=== PATIENT | female | born 1930 | race Caucasian/White ===

== ENCOUNTER 2016-03-17 07:20 | Inpatient (IN) | payer MEDICARE, OTHER ==
[~2016-03-17] VITALS: Ht 172.7 cm; Wt 74.3 kg
[2016-03-17] MEDS ORDERED: OPTIRAY 350 100 ML VIAL HMH IV ONE (07:21)
[2016-03-17] MEDS ORDERED: SODIUM CHLORIDE 0.9% 100 ML IV ONE (10:09)
[2016-03-17] MEDS ORDERED: CEFTRIAXONE 1 GM VIAL ONE (10:09)
[2016-03-17] MEDS ORDERED: DILAUDID 1 MG/ML AMP IV PRN (13:45)
[2016-03-17] MEDS ORDERED: ONDANSETRON 4 MG VIAL IV PUSH PRN (13:45)
[2016-03-17] MEDS ORDERED: ACETAMINOPHEN 325 MG TAB PO PRN (13:45)
[2016-03-17] MEDS ORDERED: ALU/MAG/SIM 30 ML UDC PO PRN (13:45)
[2016-03-17] MEDS ORDERED: SALINE FLUSH 10 ML FLUSH PRN (13:45)
[2016-03-17] MEDS ORDERED: SODIUM CHLORIDE 0.9% 1,000 ML IV SCH (13:45)
[2016-03-17] MEDS ORDERED: LACTULOSE SOLN 20GM/30ML UDC PO PRN (13:45)
[2016-03-17] MEDS ORDERED: PROMETHAZINE 25 MG/ML VIAL IV PRN (13:45)
[2016-03-17] MEDS ORDERED: DEXTROSE 50% SYRINGE 50 ML IV PRN (14:55)
[2016-03-17] MEDS ORDERED: GLUCAGON 1 MG VIAL IM PRN (14:55)
[2016-03-17] MEDS ORDERED: CEFTRIAXONE 1 GM in SODIUM CHLORIDE 0.9% 50 ML IV ONE (16:10)
[2016-03-17] MEDS ORDERED: *PINK BRACELET XX ONE (16:55)
[2016-03-17 18:33] VITALS: BP_SYST 140; BP_SYST 142; RESP 18; TEMP 97.5
[2016-03-17 18:34] VITALS: Ht 172.7 cm; Wt 74.3 kg
[2016-03-17 19:33] VITALS: BP_SYST 140
[2016-03-17 19:34] VITALS: RESP 20; TEMP 97.6
[2016-03-17] MEDS: *HOME MEDS KEPT IN PHARMACY XX SCH (20:00)
[2016-03-17] MEDS: SALINE FLUSH 10 ML FLUSH SCH (20:00)
[2016-03-17] MEDS: ALPRAZOLAM 0.25 MG TAB PO PRN (20:11)
[2016-03-17] MEDS: PANTOPRAZOLE 40 MG TAB PO SCH (21:30)
[2016-03-17] MEDS: Atorvastatin 20 MG TAB PO SCH (21:30)
[2016-03-17] MEDS: Carvedilol 3.125 MG TAB PO SCH (21:30)
[2016-03-17] MEDS: METFORMIN 500 MG TAB PO SCH (21:30)
[2016-03-17] MEDS: GABAPENTIN 100 MG CAP PO SCH (21:30)
[2016-03-17] MEDS: BUSPIRONE HCL 15 MG TAB PO SCH (21:30)
[2016-03-17 23:00] VITALS: BP_SYST 139
[2016-03-17 23:01] VITALS: RESP 20; TEMP 97.6
[2016-03-18 03:17] VITALS: BP_SYST 122; RESP 20; TEMP 98.3
[2016-03-18] MEDS: SODIUM CHLORIDE 0.9% FLUSH BAG 500 ML IV SCH (05:03)
[2016-03-18] MEDS: LEVOTHYROXINE 0.075 MG TAB PO SCH (06:30)
[2016-03-18 07:28] VITALS: BP_SYST 136; RESP 20; TEMP 98.1
[2016-03-18] MEDS: SALINE FLUSH 10 ML FLUSH SCH ×2 (08:00→22:07)
[2016-03-18] MEDS: *HOME MEDS KEPT IN PHARMACY XX SCH ×2 (08:00→20:00)
[2016-03-18] MEDS: ALPRAZOLAM 0.25 MG TAB PO PRN ×2 (09:24→22:05)
[2016-03-18] MEDS: CEFTRIAXONE 2 GM in SODIUM CHLORIDE 0.9% 50 ML IV SCH (09:24)
[2016-03-18] MEDS: ASPIRIN EC 81 MG TAB PO SCH (09:57)
[2016-03-18] MEDS: SPIRONOLACTONE 25 MG TAB PO SCH (09:57)
[2016-03-18] MEDS: PANTOPRAZOLE 40 MG TAB PO SCH ×2 (09:57→22:05)
[2016-03-18] MEDS: METFORMIN 500 MG TAB PO SCH ×2 (09:57→22:04)
[2016-03-18] MEDS: TOLTERODINE LA 2 MG CAP PO SCH (09:57)
[2016-03-18] MEDS: Carvedilol 3.125 MG TAB PO SCH ×2 (09:57→22:05)
[2016-03-18] MEDS: BUSPIRONE HCL 15 MG TAB PO SCH ×2 (09:57→22:05)
[2016-03-18] MEDS: GABAPENTIN 100 MG CAP PO SCH ×2 (09:57→22:08)
[2016-03-18] MEDS ORDERED: KETOROLAC 15 MG/ML VIAL IV PRN (10:45)
[2016-03-18 11:22] VITALS: BP_SYST 118; RESP 20; TEMP 98.1
[2016-03-18] MEDS: DIGOXIN 0.25 MG TAB PO SCH (11:45)
[2016-03-18] MEDS: MICONAZOLE 2% PWD TOPICAL SCH ×2 (11:45→22:06)
[2016-03-18 15:09] VITALS: BP_SYST 127; TEMP 98.6
[2016-03-18 19:29] VITALS: BP_SYST 135; RESP 20; TEMP 97.9
[2016-03-18] MEDS: Atorvastatin 20 MG TAB PO SCH (22:05)
[2016-03-18 23:38] VITALS: BP_SYST 125; RESP 20; TEMP 98.4
[2016-03-19 03:13] VITALS: BP_SYST 126; RESP 20; TEMP 97
[2016-03-19] MEDS: LEVOTHYROXINE 0.075 MG TAB PO SCH (06:33)
[2016-03-19] MEDS: SODIUM CHLORIDE 0.9% FLUSH BAG 500 ML IV SCH (06:33)
[2016-03-19 07:15] VITALS: BP_SYST 127; RESP 20; TEMP 98
[2016-03-19] MEDS: *HOME MEDS KEPT IN PHARMACY XX SCH ×2 (08:00→20:00)
[2016-03-19] MEDS: PANTOPRAZOLE 40 MG TAB PO SCH ×2 (08:48→20:08)
[2016-03-19] MEDS: ASPIRIN EC 81 MG TAB PO SCH (08:48)
[2016-03-19] MEDS: TOLTERODINE LA 2 MG CAP PO SCH (08:48)
[2016-03-19] MEDS: BUSPIRONE HCL 15 MG TAB PO SCH ×2 (08:48→20:08)
[2016-03-19] MEDS: SPIRONOLACTONE 25 MG TAB PO SCH (08:49)
[2016-03-19] MEDS: SALINE FLUSH 10 ML FLUSH SCH ×2 (08:49→20:00)
[2016-03-19] MEDS: METFORMIN 500 MG TAB PO SCH ×2 (08:49→20:08)
[2016-03-19] MEDS: GABAPENTIN 100 MG CAP PO SCH ×2 (08:49→20:08)
[2016-03-19] MEDS: MICONAZOLE 2% PWD TOPICAL SCH ×2 (08:55→20:16)
[2016-03-19] MEDS: Carvedilol 3.125 MG TAB PO SCH ×2 (08:55→20:08)
[2016-03-19] MEDS: CEFTRIAXONE 2 GM in SODIUM CHLORIDE 0.9% 50 ML IV SCH (09:00)
[2016-03-19 10:52] VITALS: BP_SYST 112; RESP 20; TEMP 99
[2016-03-19] MEDS: DIGOXIN 0.25 MG TAB PO SCH (11:41)
[2016-03-19 15:11] VITALS: BP_SYST 136; RESP 20; TEMP 98.3
[2016-03-19] MEDS: AMPICILLIN 500 MG CAP PO SCH ×2 (18:11→23:13)
[2016-03-19 19:15] VITALS: BP_SYST 126; RESP 20; TEMP 97.5
[2016-03-19] MEDS: ALPRAZOLAM 0.25 MG TAB PO PRN ×2 (20:07→22:40)
[2016-03-19 23:00] VITALS: BP_SYST 140; RESP 20; TEMP 97.8
[2016-03-20] VITALS (11 sets, daily range): BP systolic 102–156; RESP 18–20; TEMP 97.5–99
[2016-03-20] MEDS: SODIUM CHLORIDE 0.9% FLUSH BAG 500 ML IV SCH (05:03)
[2016-03-20] MEDS: AMPICILLIN 500 MG CAP PO SCH ×3 (06:04→17:21)
[2016-03-20] MEDS: LEVOTHYROXINE 0.075 MG TAB PO SCH (06:04)
[2016-03-20] MEDS: SALINE FLUSH 10 ML FLUSH SCH (08:00)
[2016-03-20] MEDS: *HOME MEDS KEPT IN PHARMACY XX SCH ×2 (08:00→20:00)
[2016-03-20] MEDS: PANTOPRAZOLE 40 MG TAB PO SCH ×2 (08:52→21:07)
[2016-03-20] MEDS: METFORMIN 500 MG TAB PO SCH ×2 (08:52→21:08)
[2016-03-20] MEDS: TOLTERODINE LA 2 MG CAP PO SCH (08:52)
[2016-03-20] MEDS: BUSPIRONE HCL 15 MG TAB PO SCH ×2 (08:52→21:07)
[2016-03-20] MEDS: ASPIRIN EC 81 MG TAB PO SCH (08:52)
[2016-03-20] MEDS: Carvedilol 3.125 MG TAB PO SCH ×2 (08:52→21:08)
[2016-03-20] MEDS: GABAPENTIN 100 MG CAP PO SCH ×2 (08:52→21:08)
[2016-03-20] MEDS: SPIRONOLACTONE 25 MG TAB PO SCH (08:52)
[2016-03-20] MEDS: CEFTRIAXONE 2 GM in SODIUM CHLORIDE 0.9% 50 ML IV SCH (08:53)
[2016-03-20] MEDS: MICONAZOLE 2% PWD TOPICAL SCH ×2 (08:53→21:09)
[2016-03-20] MEDS: DIGOXIN 0.25 MG TAB PO SCH (11:56)
[2016-03-20] MEDS: ALPRAZOLAM 0.25 MG TAB PO PRN (17:21)
[2016-03-21] VITALS (7 sets, daily range): BP systolic 124–149; RESP 18–20; TEMP 97.5–98.5
[2016-03-21] MEDS: AMPICILLIN 500 MG CAP PO SCH ×4 (00:34→17:06)
[2016-03-21] MEDS: LEVOTHYROXINE 0.075 MG TAB PO SCH (06:03)
[2016-03-21] MEDS: *HOME MEDS KEPT IN PHARMACY XX SCH ×2 (08:00→14:09)
[2016-03-21] MEDS: PANTOPRAZOLE 40 MG TAB PO SCH (08:46)
[2016-03-21] MEDS: GABAPENTIN 100 MG CAP PO SCH (08:46)
[2016-03-21] MEDS: BUSPIRONE HCL 15 MG TAB PO SCH (08:46)
[2016-03-21] MEDS: TOLTERODINE LA 2 MG CAP PO SCH (08:46)
[2016-03-21] MEDS: SPIRONOLACTONE 25 MG TAB PO SCH (08:46)
[2016-03-21] MEDS: Carvedilol 3.125 MG TAB PO SCH (08:46)
[2016-03-21] MEDS: ASPIRIN EC 81 MG TAB PO SCH (08:46)
[2016-03-21] MEDS: METFORMIN 500 MG TAB PO SCH (08:46)
[2016-03-21] MEDS: MICONAZOLE 2% PWD TOPICAL SCH (08:47)
[2016-03-21] MEDS: DIGOXIN 0.25 MG TAB PO SCH (12:21)
[2016-03-21] MEDS ORDERED: MISSING DOSE XX ONE (14:05)
[2016-03-21] MEDS ORDERED: PROMETHAZINE 12.5 MG TAB PO PRN (14:05)
== END 2016-03-21 19:20 | disposition home or self-care (01) | DRG 690 ==
LOC: ENRESERVDT → ENRESERVTM → ER 07:20 → EEVIPCON 14:00 → EMR 14:00 → ENPENDDIS 14:00 → 3NT 16:04
PROVIDERS: ADMIT Internal Medicine Nephrology; ATTEND Internal Medicine Nephrology
CPT/HCPCS: 36415; 71010; 73523; 74177; 74181; 76376; 80053; 81001; 82947; 83735; 85025; 85610; 85730; 87088; 87804; 93005; 96365